=== PATIENT | male | born 1955 | race Caucasian/White ===

== ENCOUNTER 2018-02-14 11:15 | Emergency (ER) | payer OTHER ==
[~2018-02-14] VITALS: Ht 170.2 cm; Wt 77.1 kg
[2018-02-14] MEDS ORDERED: ASPI81TA31 PO (11:21)
[2018-02-14] MEDS ORDERED: NAPROXEN 500 MG TABLET PO ONE (11:30)
--- NOTE | 2018-02-14 11:30 | NUR ---
MSE COMPLETED, PT D/C'D HOME, ACI/RX X4 GIVEN. PT AMBULATED W/O DIFF, TOOK ALL BELONGINGS
[2018-02-14 11:31] VITALS: BP 111/72
[2018-02-14] MEDS ORDERED: NAPROXEN 500 MG TABLET ONE (11:32)
== END 2018-02-14 11:32 | disposition home or self-care (01) ==
LOC: ER 11:15
DX: H60.91 Unspecified otitis externa, right ear (principal); H66.91 Otitis media, unspecified, right ear
CPT/HCPCS: A4663

== ENCOUNTER 2018-07-29 20:53 | Emergency (ER) | payer OTHER, MEDICAID ==
[~2018-07-29] VITALS: Ht 170.2 cm; Wt 74.8 kg
[~2018-07-29 20:53] MED LIST: ASPI81TA31 PO
--- NOTE | 2018-07-29 21:10 | NUR ---
Pt ambulated into dept with c/o tooth ache/gum pain. Patient ANO and is able to verbalize complaints. Upon assessment, patient has a white discoloration on the frontal upper gums. Upper lip appears swollen and tender to the touch. Patient able to breathe without any resp discomfort. PS 9/10.
[2018-07-29] MEDS ORDERED: IBUPROFEN 800 MG TABLET ONE (22:23)
--- NOTE | 2018-07-29 22:24 | NUR ---
Patient discharged to home in stable conditon. Written and verbal after care instructions given to patient and son. Patient and son verbalize understanding of instructions. Patient able to ambulate out of the dept with steady gait.
[2018-07-29 22:25] VITALS: BP 126/91
[2018-07-29] MEDS ORDERED: IBUPROFEN 800 MG TABLET PO ONE (22:30)
== END 2018-07-29 22:26 | disposition home or self-care (01) ==
LOC: ER 20:53
DX: L03.211 Cellulitis of face (principal); K04.7 Periapical abscess without sinus; Z79.82 Long term (current) use of aspirin
CPT/HCPCS: A4663

== ENCOUNTER 2020-02-24 23:23 | Emergency (ER) | payer MEDICAID, OTHER ==
[~2020-02-24] VITALS: Ht 172.7 cm; Wt 75.9 kg
--- NOTE | 2020-02-24 23:40 | NUR ---
Patient bib son with c/o left arm pain/weakness that started 5 min prior to arrival. Denies any trauma or injury to area. Patient reports history of stroke. Patient states an episode like this has happened before but pain went away. Speech clear. No facial asymmetry. Patient able to move all extremities. Sensation intact. Code Stroke initiated. Blood sugar 80.
[2020-02-24] MEDS ORDERED: IV NORMAL SALINE 1000 ML BAG IV ONE (23:45)
[2020-02-24 23:53] LABS: BASOPHILS % (AUTO) 0.6 % (0.0-2.0); EOSINOPHILS # (AUTO) 0.1 K/uL (0.0-0.7); EOSINOPHILS % (AUTO) 2.1 % (0.0-7.0); HEMATOCRIT 45.4 % (36.7-47.1); HEMOGLOBIN 15.5 g/dL (12.5-16.3); LYMPHOCYTES # (AUTO) 3.6 K/uL (20.0-40.0); LYMPHOCYTES % (AUTO) 53.7 % (20.5-51.5); MEAN CORPUSCULAR HGB CONC 34 g/dL (32.5-36.3); MEAN CORPUSCULAR VOLUME 93.7 fL (73.0-96.2); MONOCYTES # (AUTO) 0.8 K/uL (2.0-10.0); MONOCYTES % (AUTO) 11.3 % (0.0-11.0); NEUTROPHILS # (AUTO) 2.2 K/uL (1.8-8.9); NEUTROPHILS % (AUTO) 32.3 % (38.5-71.5); PLATELET COUNT (AUTO) 196 K/uL (152-348); RED BLOOD CELL COUNT(AUTO) 4.85 MIL/uL (4.06-5.63); WHITE BLOOD COUNT (AUTO) 6.7 K/uL (3.6-10.2)
--- NOTE | 2020-02-25 | NUR ---
Patient back from CT scan. Placed on monitor. Vitals are stable. Patient speaking to teleneurologist at this time.
[2020-02-25 00:06] LABS: BILIRUBIN,DIRECT 0.1 mg/dL (0.0-0.2); BILIRUBIN,TOTAL 0.3 mg/dL (0.2-1.0); CREATININE 1.1 mg/dL (0.6-1.3)
[2020-02-25] MEDS ORDERED: HYDROCODONE/APAP 10-325 MG TABLET PO ONE (00:45)
[2020-02-25] MEDS ORDERED: HYDROCODONE/APAP 10-325 MG TABLET ONE (00:47)
--- NOTE | 2020-02-25 00:55 | NUR ---
Patient discharged to home in stable condition with son who is drivig home. Written and verbal after care instructions given. Patient verbalizes understanding of instructions. Stressed follow up or return to ER for worsening s/s.
--- NOTE | 2020-02-25 00:55 | NUR ---
IV removed. Catheter intact and site benign. Pressure and 4x4 gauze applied to site. No bleeding noted.
[2020-02-25 00:56] VITALS: BP 118/67
== END 2020-02-25 00:57 | disposition home or self-care (01) ==
LOC: ER 23:24
DX: M50.122 Cervical disc disorder at C5-C6 level with radiculopathy (principal); Z86.73 Personal history of transient ischemic attack (TIA), and cerebral infarction without residual deficits; Z79.82 Long term (current) use of aspirin; R94.31 Abnormal electrocardiogram [ECG] [EKG]; M48.02 Spinal stenosis, cervical region; Z79.01 Long term (current) use of anticoagulants
CPT/HCPCS: 36415; 70030-TC; 70450; 71045; 72125; 83605; 85025; 85610; 85730; 87040; 93005

== ENCOUNTER 2020-11-05 13:53 | Emergency (ER) | payer MEDICAID ==
[~2020-11-05] VITALS: Ht 170.2 cm; Wt 79.4 kg
[2020-11-05] MEDS ORDERED: NAPROXEN 500 MG TABLET PO ONE (14:15)
[2020-11-05] MEDS ORDERED: NAPROXEN 500 MG TABLET ONE (14:18)
[2020-11-05 14:30] LABS: BASOPHILS % (AUTO) 0.6 % (0.0-2.0); EOSINOPHILS # (AUTO) 0.2 K/uL (0.0-0.7); EOSINOPHILS % (AUTO) 2.6 % (0.0-7.0); HEMATOCRIT 45.5 % (36.7-47.1); HEMOGLOBIN 15.9 g/dL (12.5-16.3); LYMPHOCYTES # (AUTO) 3.5 K/uL (20.0-40.0); LYMPHOCYTES % (AUTO) 45.7 % (20.5-51.5); MEAN CORPUSCULAR HEMOGLOBIN 32.3 uug (23.8-33.4); MEAN CORPUSCULAR HGB CONC 35 g/dL (32.5-36.3); MEAN CORPUSCULAR VOLUME 92.3 fL (73.0-96.2); MONOCYTES # (AUTO) 0.6 K/uL (2.0-10.0); NEUTROPHILS # (AUTO) 3.3 K/uL (1.8-8.9); NEUTROPHILS % (AUTO) 43.1 % (38.5-71.5); PLATELET COUNT (AUTO) 193 K/uL (152-348); RED BLOOD CELL COUNT(AUTO) 4.93 MIL/uL (4.06-5.63); WHITE BLOOD COUNT (AUTO) 7.6 K/uL (3.6-10.2)
[2020-11-05 14:34] LABS: POTASSIUM 4.1 mmol/L (3.5-5.1)
[2020-11-05] MEDS ORDERED: DICL100G16 TP (14:59)
[2020-11-05] MEDS ORDERED: NAPR-1009 PO (14:59)
--- NOTE | 2020-11-05 15:06 | NUR ---
Patient discharged to home in stable condition with steady gait. Written and verbal after care instructions given to patient and family. Patient & family verbalized understanding of instructions. Stressed follow up or return to ER for worsening s/s.
== END 2020-11-05 15:07 | disposition home or self-care (01) ==
LOC: ER 13:54
DX: M17.11 Unilateral primary osteoarthritis, right knee (principal); M25.461 Effusion, right knee; Z98.890 Other specified postprocedural states
CPT/HCPCS: 36415; 70030-TC; 73560; 85025; 85610; A4663; J7030

== ENCOUNTER 2020-12-23 15:14 | Emergency (ER) | payer MEDICAID ==
[~2020-12-23] VITALS: Ht 170.2 cm; Wt 77.1 kg
[~2020-12-23 15:14] MED LIST changes: +DICL100G16 TP; +NAPR-1009 PO
--- NOTE | 2020-12-23 15:51 | NUR ---
Blood collected at 1545 and dropped off at lab at 1550. Pt tolerated blood draw well. Gauze and manual pressure kept for 5 minutes and tape applied.
[2020-12-23 16:02] LABS: CREATININE 0.8 mg/dL (0.6-1.3); HEMATOCRIT 46.2 % (36.7-47.1); MEAN CORPUSCULAR HEMOGLOBIN 31.5 uug (23.8-33.4); MEAN CORPUSCULAR VOLUME 93.7 fL (73.0-96.2); PLATELET COUNT (AUTO) 192 K/uL (152-348)
[2020-12-23 16:08] LABS: BILIRUBIN,DIRECT 0.1 mg/dL (0.0-0.2); BILIRUBIN,TOTAL 0.5 mg/dL (0.2-1.0); TOTAL PROTEIN, SERUM 6.7 g/dL (6.4-8.2)
--- NOTE | 2020-12-23 16:59 | NUR ---
Stressed the importance of arranging f/u appointment with patient's primary physician. Male family member present and agreed to do such.
[2020-12-23 17:07] VITALS: BP 119/84
== END 2020-12-23 17:08 | disposition home or self-care (01) ==
LOC: ER 15:14
DX: R23.3 Spontaneous ecchymoses (principal); Z86.718 Personal history of other venous thrombosis and embolism; Z79.01 Long term (current) use of anticoagulants
CPT/HCPCS: 36415; 85025; 85730; A4663

== ENCOUNTER 2022-05-08 20:39 | Emergency (ER) | payer SELFPAY ==
--- NOTE | 2022-05-08 21:45 | NUR ---
Patient was just called at this time to be triaged due to short staffing, holding 3 ICU patient in the ER and only 3 nurses at this time schedule.
--- NOTE | 2022-05-08 22:00 | NUR ---
Patient was called to be triaged but was not present in the waiting room or outside of ER.
--- NOTE | 2022-05-08 22:30 | NUR ---
Patient was called but not present. PATIENT WAS NOT TRAIGED OR SEEN BY ERMD.
== END 2022-05-08 22:30 | disposition left against medical advice (07) ==
LOC: ER 20:43
DX: Z53.21 Procedure and treatment not carried out due to patient leaving prior to being seen by health care provider (principal)